=== PATIENT | male | born 1990 ===

== ENCOUNTER 2022-05-19 08:00 | Outpatient (CLI) | payer OTHER ==
--- NOTE | 2022-05-20 12:16 | XRAY Report ---
PROCEDURE: Ankle 2 View LT INDICATIONS: SPRAIN OF LIGAMENT OF L ANKLE TECHNIQUE: 2 views of the ankle were acquired. COMPARISON: None FINDINGS: Bones: Calcification measuring approximately 1.2 cm is present distal to the medial malleolus. There is a small linear calcification immediately distal to the distal fibular tip measuring 2 mm. Ankle mo rtise is normally aligned. No suspicious bony lesions. Soft tissues: Prominent lateral malleolar edema. Achilles tendon appears normal. IMPRESSION: Distal fibular tip calcification suggestive of avulsion fracture. Prominent lateral malleoli are elizabeth a. Calcification is noted distal to the medial malleolus suspected to represent old trauma or dystrophic calcification given lack of soft tissue edema. Recommend correlation to point tenderness. Reviewed by: Betina Delgado MD on 05/20/2022 12:15 PM PST Approved by: Betina Delgado MD on 05/20/2022 12:15 PM PST Station ID: [id number]
== END 2022-05-19 23:59 | disposition home or self-care (01) ==
LOC: DI.N 08:00
PROVIDERS: ATTEND Nurse Practitioner
DX: S93.402A Sprain of unspecified ligament of left ankle, initial encounter (principal); M25.872 Other specified joint disorders, left ankle and foot